=== PATIENT | male | born 1945 | race Caucasian/White ===

== ENCOUNTER 2017-04-15 19:05 | Emergency (ER) | payer OTHER ==
--- NOTE | 2017-04-15 19:23 | EDPHY ---
H & P Stated Complaint: cough x6 days saw clinic yesterday dx virus, otc meds - Medical/Surgical History Hx Asthma: No Hx Chronic Respiratory Disease: No Hx Diabetes: No Hx Cardiac Disease: Yes Hx Renal Disease: No Hx Cirrhosis: No Hx Alcoholism: No Hx HIV/AIDS: No Hx Splenectomy or Spleen Trauma: No Other PMH: surgery: hemmroidectomy, shoulder replacement,. hx: cardiac stents, CAD, HTN, high chol, - Social History Smoking Status: Former smoker Time Seen by Provider: 04/15/17 19:22 Constitutional: Initial Vital Signs Temperature (C) 37.9 C 04/15/17 19:09 Heart Rate 115 H 04/15/17 19:09 Respiratory Rate 20 04/15/17 19:09 Blood Pressure 161/90 H 04/15/17 19:09 O2 Sat (%) 95 04/15/17 19:09 O2 Delivery Mode Room Air Allergies/Adverse Reactions: No Known Allergies Allergy (Unverified 04/15/17 19:09) Home Medications: Medication Instructions Recorded ASPIRIN 04/15/17 AZITHROMYCIN [Z-PACK] 250 mg PO DAILY #1 packet 04/15/17 Acetazolamide 04/15/17 [place] Thyroid 04/15/17 Losartan/Hctz 50/12.5 04/15/17 Metoprolol Tartrate 04/15/17 Plavix 04/15/17 Medical Decision Making - Diagnostics Imaging: Discussed imaging studies w/ shipwright apprentice Radiologist, I viewed and interpreted images myself - Diagnostics Imaging Results: Imaging Impressions Chest/Thorax CTA 04/15/17 20:25 Impression: 1. No pulmonary embolism to the segmental level. 2. Patchy groundglass opacities in the left lower lobe, likely infectious and/ or inflammatory. Consider follow-up CT in 2-3 months to verify resolution. Dr. Hair discussed these findings by telephone with Navneet Hebert MD at 2016 22:12. ED Course/Re-evaluation: CHIEF COMPLAINT: "I feel like I'm on the verge of collapsing" HISTORY OF PRESENT ILLNESS: This patient is a 71 year old male with history of hypertension complaining of fatigue and cough onset Tuesday, five days ago. His symptoms began with congestion in his chest and nose, and have been getting progressively worse over the week. He was evaluated at the [facility] yesterday, and diagnosed with a viral infection. Today, he feels his cough is getting deeper, and he felt nauseous and lightheaded walking in to the emergency department today. He denies fever, chest pain, or other associated symptoms. Of note, the patient does have history of six cardiac stents placed three years ago, and family history of quadruple bypass in his father and brother in their late 60s. REVIEW OF SYSTEMS: A 10 point review of systems was performed and is negative with the exception of the elements mentioned in the history of present illness. PHYSICAL EXAM: HR, BP, O2 Sat, RR. Temp noted General Appearance: Alert, well hydrated, appropriate, and non-toxic appearing. Head: Atraumatic without scalp tenderness or obvious injury Eyes: Pupils equal, round, reactive to light and accommodation, EOMI, no trauma , no injection. Ears: Clear bilaterally, no perforation, normal landmarks Nose: Atraumatic, no rhinorrhea, clear. Throat: There is no erythema or exudates, no lesions, normal tonsils, mucus membranes moist. Neck: Supple, 2+ carotid upstroke, nontender, no lymphadenopathy. Respiratory: Coarse rhonchi in bases bilaterally. No retractions, no distress, no wheezes, and no accessory muscle use. Cardiovascular: Regular rate and rhythm, no murmurs, rubs, or gallops. Good capillary refill all extremities. Gastrointestinal: Abdomen is soft, nontender, non-distended, no masses, no rebound, no guarding, no peritoneal signs. Musculoskeletal: Normal active ROM of all extremities, atraumatic. Neurological: Alert, appropriate, and interactive. Nonfocal neuro exam. Skin: No rashes, good turgor, no nodules on palpation. Past medical history: Coronary artery disease, hypertension, hyperlipidemia Past surgical history: Cardiac stent x6, shoulder replacement, hemorrhoidectomy Family history: Cardiac disease. Social history: Visiting from [place]. Staying with a friend. PROCEDURES: The 12 lead EKG was interpreted by myself. Sinus tachycardia, rate 103. See hard copy and/or "tracemaster" electronic copy for interpretation. DIFFERENTIAL DIAGNOSIS: The differential diagnosis for the patient's cough included but was not limited to bronchitis, pneumonia, viral syndrome, and sepsis. MEDICAL DECISION [id number] year old male presents with five day history or worsening cough and fatigue. Physical exam reveals coarse rhonchi in lung bases bilaterally. Plan for chest x-ray, labs including D-dimer, Troponin, lactic acid, BNP, and blood cultures. Plan for EKG due to patient's cardiac history. The patient does not meet sepsis criteria at this time. Plan for DuoNeb administration for relief of symptoms. Chest x-ray shows evidence of bronchitis. D-dimer elevated at 0.71. Plan for CTA to rule out pulmonary embolism or other acute processes. 21:[address] Hebert at shift change. Plan to discharge home with prescription for Levaquin pending CTA result. (Emeterio Biggs) 2100 care assumed by me from Dr. Biggs pending CT scan of the chest. The CT scan is negative patient will be discharged on oral antibiotics and follow up with primary care physician. 2230 CT angiogram of the chest is negative for acute PE. There is some ground- glass opacity consistent with a viral pneumonitis or atypical pneumonitis. Will discharge on azithromycin per Dr. Biggs plan. Follow up as an outpatient. (Navneet Hebert) - Data Points Laboratory Results: 04/15/17 04/15/17 04/15/17 20:33 19:38 19:38 POC Hgb 16.0 gm/dL gm/dL (13.7-17.5) POC Hct 47 % % (40-51) D-Dimer 0.71 ug/mLFEU H ug/mLFEU (0.00-0.50) VBG Lactic Acid POC Sodium 139 mEq/L mEq/L (134-144) POC Potassium 3.5 mEq/L mEq/L (3.3-5.0) POC Chloride 108 mEq/L mEq/L (97-110) POC BUN 25 mg/dL H mg/dL (7-23) POC Creatinine 1.2 mg/dL mg/dL (0.7-1.3) POC Glucose 159 mg/dL H mg/dL (70-100) Troponin I < 0.012 ng/mL ng/mL (0.000-0.034) NT-Pro-B Natriuret Pep 94 pg/mL pg/mL (0-125) 04/15/17 19:36 POC Hgb POC Hct D-Dimer VBG Lactic Acid 1.9 mmol/L mmol/L (0.7-2.1) POC Sodium POC Potassium POC Chloride POC BUN POC Creatinine POC Glucose Troponin I NT-Pro-B Natriuret Pep Medications Given: Discontinued Medications Albuterol/Ipratropium (Duoneb) 3 ml IH EDNOW ONE Stop: 04/15/17 19:42 Last Admin: 04/15/17 20:00 Dose: 3 ml Point of Care Test Results: 04/15/17 20:33 POC Sodium 139 POC Potassium 3.5 POC Chloride 108 POC BUN 25 H POC Creatinine 1.2 POC Glucose 159 H Departure - Departure Disposition: Home, Routine, Self-Care Clinical Impression: Acute bronchitis Qualifiers: Bronchitis organism: other organism Qualified Code(s): J20.8 - Acute bronchitis due to other specified organisms Condition: Good Instructions: Acute Bronchitis (ED) Additional Instructions: 1. Follow up with your primary care provider as soon as you return to [place] for continued management of symptoms. 2. Return to the emergency department for fever, worsening shortness of breath, chest pain, or other worsening of condition. 3. Take your Z-pack as prescribed. Referrals: TARA HERNANDEZ [Other] - As per Instructions Prescriptions: AZITHROMYCIN [Z-PACK] 250 mg PO DAILY #1 packet Report Scribed for: Emeterio Biggs Report Scribed by: Krystin Juarez Date of Report: 04/15/17 Time of Report: 20:48
[2017-04-15] MEDS ORDERED: IPRATROPIUM/ALBUTEROL 3 ML DEYVIAL IH ONE (19:41)
--- NOTE | 2017-04-15 19:57 | CPEKG ---
Heart Rate: 103 RR Interval: 583 P-R Interval: 160 QRSD Interval: 80 QT Interval: 300 QTC Interval: 393 P Brayton: 57 QRS Brayton: 27 T Wave Brayton: 73 EKG Severity - OTHERWISE NORMAL ECG - EKG Impression: SINUS TACHYCARDIA Electronically Signed By: Emeterio Biggs 15-Apr-2017 20:55:15
[2017-04-15 20:11] LABS: TROPONIN I < 0.012 ng/mL (0.000-0.034)
[2017-04-15] MEDS ORDERED: IOPAMIDOL (ISOVUE 370) 100 ML BTL IV ONE (20:51)
[2017-04-15 21:36] VITALS: BP 123/71; PULSE 94; RESP 18; TEMP 100; O2SAT 96
== END 2017-04-15 23:06 | disposition home or self-care (01) ==
DX: J20.9 Acute bronchitis, unspecified (principal); I25.10 Atherosclerotic heart disease of native coronary artery without angina pectoris; I10 Essential (primary) hypertension; Z79.82 Long term (current) use of aspirin; Z87.891 Personal history of nicotine dependence; Z95.5 Presence of coronary angioplasty implant and graft
CPT/HCPCS: 71020; 71275; 93005; 99285; Q9967; 82947-QW